=== PATIENT | female | born 1960 | race Caucasian/White ===

== ENCOUNTER → 2017-06-15 | Outpatient (CLI) | payer OTHER ==
[~2017-06-15] MED LIST: ENA10 PO; GAB300 PO; HYDR-3087 PO; LOR5/325 PO; OMEP40CA45 PO; PAR20 PO; PEN250 PO
--- NOTE | 2017-06-16 08:29 | RADIOLOGY IMAGING REPORT ---
FACILITY: [facility] PATIENT NAME: OK PRABHAKAR : [id number] MR: [id number] V: [id number] EXAM DATE: ORDERING PHYSICIAN: CRISTOPHER MAGDALENO TECHNOLOGIST: Katty Mora PROCEDURE:BILATERAL DIGITAL SCREENING MAMMOGRAM WITH CAD ASSISTED INTERPRETATION AND 3D BREAST TOMOSYNTHESIS. COMPARISON:Prior mammograms dated 10/12/13. INDICATIONS:SCREENING FINDINGS: A small amount of fibroglandular tissue is seen throughout the breasts. Most of the parenchymal pattern has remained stable when allowing for difference in mammographic technique and patient positioning. There is a small focal area of increased density in the lateral portion of the right breast in the right CC view in zone 3 for which spot compression view is recommended. DIAGNOSTIC CATEGORY 0--INCOMPLETE: NEED ADDITIONAL IMAGING EVALUATION. RECOMMENDATIONS: ADDITIONAL MAMMOGRAPHIC VIEWS REQUIRED: RIGHT BREAST. IMPRESSION: BI-RADS 0: Additional views of the right breast recommended as described. Images were reviewed with R2CAD and 3D breast tomosynthesis. Dictated by: Ofe Davison M.D. on 06/15/2017 at 16:48 Transcribed by: PIERCE on 06/15/2017 at 18:19 Approved by: Ofe Davison M.D. on 06/16/2017 at 8:28 [facility]
== END ==
LOC: MAMO 01:43
PROVIDERS: ATTEND Physician Assistant
DX: Z12.31 Encounter for screening mammogram for malignant neoplasm of breast (principal); R92.8 Other abnormal and inconclusive findings on diagnostic imaging of breast
CPT/HCPCS: 77063; 77067

== ENCOUNTER 2017-06-24 00:52 | Day surgery (SDC) | payer OTHER ==
[~2017-06-24] VITALS: Ht 154.9 cm; Wt 82.1 kg
[2017-06-24] MEDS ORDERED: PROPOFOL EMUL(*) 10MG/ML 20 ML 40 ML ONE (07:31)
[2017-06-24 13:02] VITALS: BP 180/106
[2017-06-24] MEDS ORDERED: MIDAZOLAM 2 MG/2 ML VIAL IVP PRN (13:15)
[2017-06-24] MEDS ORDERED: NORMOSOL R SOLN(*) 1000 ML BAG 1,000 ML IV PRN (13:15)
[2017-06-24] MEDS ORDERED: LIDOCAINE/SOD BICARB 8.4% SYR ID ONE (13:15)
[2017-06-24] MEDS ORDERED: PROPOFOL EMUL(*) 10MG/ML 20 ML 20 ML ONE ×2 (13:51→14:10)
[2017-06-24 14:19] VITALS: BP 116/66
[2017-06-24 14:34] VITALS: BP 136/86
[2017-06-24 14:55] VITALS: BP 149/78
[2017-06-24 15:04] VITALS: BP 157/77
[2017-06-24 15:06] VITALS: BP 152/89
== END 2017-06-24 15:21 | disposition home or self-care (01) ==
LOC: OR 00:52
PROVIDERS: ATTEND Family Medicine
DX: Z12.11 Encounter for screening for malignant neoplasm of colon (principal); K63.5 Polyp of colon; K62.1 Rectal polyp; E11.9 Type 2 diabetes mellitus without complications
CPT/HCPCS: 00811; 36416; 45385; 82948; 88305; J2704

== ENCOUNTER → 2017-06-24 | Outpatient (CLI) | payer OTHER ==
[~2017-06-24] MED LIST changes: +ENAL-242 PO; +METF-410 PO; +PRAV20TA66 PO
--- NOTE | 2017-06-29 08:49 | RADIOLOGY IMAGING REPORT ---
FACILITY: [facility] PATIENT NAME: OK PRABHAKAR : [id number] MR: [id number] V: [id number] EXAM DATE: ORDERING PHYSICIAN: CRISTOPHER MAGDALENO TECHNOLOGIST: Caty Headley PROCEDURE:RIGHT DIGITAL DIAGNOSTIC MAMMOGRAM WITH CAD AND 3D BREAST TOMOSYNTHESIS. COMPARISON:Prior mammograms dated 06/15/17, 10/12/13,. INDICATIONS:FURTHER EVALUATION FINDINGS: The patient returns for spot compression view in the right CC projection. A small focal area of increased density in the lateral portion of the right breast on the previous right CC view appeared fairly compressible and apparently represented summation shadow. There was no demonstration of malignant appearing mass or calcification in the right breast. DIAGNOSTIC CATEGORY 2--BENIGN FINDING. RECOMMENDATIONS: ROUTINE MAMMOGRAM AND CLINICAL EVALUATION. IMPRESSION: BI-RADS 2: No significant abnormality of the right breast is seen. Images were reviewed with R2CAD and 3D breast tomosynthesis. Dictated by: Ofe Davison M.D. on 06/24/2017 at 14:18 Transcribed by: PIERCE on 06/24/2017 at 19:51 Approved by: Ofe Davison M.D. on 06/29/2017 at 8:47 [facility]
== END ==
LOC: MAMO 01:23
PROVIDERS: ATTEND Physician Assistant
DX: R92.2 Inconclusive mammogram (principal)
CPT/HCPCS: 77065